=== PATIENT | female | born 1980 | race Caucasian/White ===

== ENCOUNTER 2017-02-14 07:57 | Emergency (ER) | payer BC, OTHER ==
[~2017-02-14] VITALS: Ht 157.5 cm; Wt 66.8 kg
[2017-02-14 07:58] VITALS: Ht 157.5 cm; Wt 66.8 kg
[2017-02-14] MEDS ORDERED: IBUPROFEN 600 MG TAB PO ONE (08:30)
[2017-02-14 08:33] LABS: URINE BLOOD (Dip) POC Negative (NEGATIVE)
--- NOTE | 2017-02-14 08:59 | ERD ---
ER Documentation Chief Complaint Date/Time DATE: 02/14/17 TIME: 08:55 Chief Complaint BACK PAIN X 2 WEEKS HPI 36 yo female otherwise healthy comes in with diffuse, achy, mild to moderate lower back pain for 2 weeks. She states that she has tried taking ibuprofen that seems to help. She states that the pain has been the same, not improving or getting worse. It is worse when she is sitting however, or after she goes to work. She denies any history of heavy lifting, or trauma. She denies saddle anesthesia loss of bowel bladder function. No fevers, chills, chest pain shortness of breath. ROS All systems reviewed and are negative except as per history of present illness. Medications Home Meds Active Scripts Naproxen* (Naprosyn*) 500 Mg Tablet, 500 MG PO BID Y for PAIN AND/OR INFLAMMATION, #30 TAB Prov:LORETTA HARDIN PA-C 02/14/17 Allergies Allergies: Coded Allergies: No Known Allergy (Verified , 07/07/12) PMhx/Soc History of Surgery: Yes ( X2) Anesthesia Reaction: No Hx Neurological Disorder: No Hx Respiratory Disorders: No Hx Cardiac Disorders: No Hx Psychiatric Problems: No Hx Miscellaneous Medical Probl: No Hx Alcohol Use: No Hx Substance Use: No Hx Tobacco Use: No Physical Exam Vitals Vital Signs Date Time Temp Pulse Resp B/P Pulse Ox O2 Delivery O2 Flow Rate FiO2 02/14/17 07:58 98.9 82 18 122/58 99 Physical Exam General: Well-developed, well-nourished. The patient appears in no acute distress. HEENT: Head is normocephalic, atraumatic. No scleral icterus. Neck: Supple. Nontender. Lungs: Clear to auscultation. Normal air movement. Heart: Regular rate and rhythm. S1 and S2 are normal. No murmurs, gallops, or rubs. Abdomen: Soft, nontender, nondistended. Bowel sounds are normoactive. Back: No rashes, no neck stiffness, strength lower extremities 5 out of 5 bilaterally, no midline tenderness. No CVA tenderness. diffuse low back tenderness with palpation laterally Extremities: No clubbing or cyanosis. Normal pulses. Moving extremities x 4. No weakness. Neurologic: Alert and oriented 3. No focal deficits. Skin: Normal turgor. No rash or lesions. Results 24 hrs Laboratory Tests Test 8/9/17 08:40 Bedside Urine pH (LAB) 5.5 Bedside Urine Protein (LAB) Negative Bedside Urine Glucose (UA) Negative Bedside Urine Ketones (LAB) Negative Bedside Urine Blood Negative Bedside Urine Nitrite (LAB) Negative Bedside Urine Leukocyte Esterase (L Negative Current Medications Medications (Trade) Dose Ordered Sig/Adi Route PRN Reason Start Time Stop Time Status Last Admin Dose Admin Ibuprofen (Motrin) 600 mg ONCE ONCE PO 02/14/17 08:30 02/14/17 08:31 DC 02/14/17 08:35 Radiology Main Line: [phone] DIAGNOSTIC IMAGING REPORT Patient: BLAKE ZARCO : 1980 Age: 36 Sex: F MR #: [id number] DOS: 02/14/17 0810 Ordering MD: LORETTA HARDIN PA-C Location: [facility] Room/Bed: PROCEDURE: XR Lumbar Spine. CLINICAL INDICATION: back pain TECHNIQUE: AP, lateral and cone-down lateral view of the lumbar spine were obtained. COMPARISON: No prior studies are available for comparison. FINDINGS: There is normal vertebral mineralization and alignment. No fracture or subluxation is seen. The disc spaces are normal in appearance. The posterior elements are unremarkable. The soft tissues appear normal. RPTAT: AA IMPRESSION: Unremarkable lumbar spine. .Jono Jaeger MD, MD Date Time Electronically viewed and signed by .Jono Jaeger MD, MD on 02/14/2017 09: 41 Procedures/MDM Medical decision makin-year-old female presents with low back pain for 2 weeks, consistent with a lumbar strain. Patient does not have any midline pain, an x-rays are normal. Urine was negative for infection. No signs of pyelonephritis, kidney stones. No evidence of fracture or subluxation, cauda equina or epidural abscess. Patient's symptoms appear to be worse after she is working, and she has tenderness laterally in the muscular regions. Patient is well appearing, stable for discharge. Departure Diagnosis: Primary Impression: Back pain Condition: Good LORETTA HARDIN PA-C Feb 14, 2017 08:58
--- NOTE | 2017-02-14 09:41 | RADRPT ---
PROCEDURE: XR Lumbar Spine. CLINICAL INDICATION: back pain TECHNIQUE: AP, lateral and cone-down lateral view of the lumbar spine were obtained. COMPARISON: No prior studies are available for comparison. FINDINGS: There is normal vertebral mineralization and alignment. No fracture or subluxation is seen. The disc spaces are normal in appearance. The posterior elements are unremarkable. The soft tissues appear normal. RPTAT: AA IMPRESSION: Unremarkable lumbar spine. .Jono Jaeger MD, MD Date Time Electronically viewed and signed by .Jono Jaeger MD, on 02/14/2017 09:41 .S/
[2017-02-14] MEDS ORDERED: NAPR-260 PO (09:49)
== END 2017-02-14 09:58 | disposition home or self-care (01) ==
LOC: FTE 07:57
DX: M54.5 Low back pain (principal)
CPT/HCPCS: 72100; 81003; 99283; Z7610

== ENCOUNTER 2017-07-21 18:53 | Emergency (ER) | END 2017-07-21 19:05 | disposition left against medical advice (07) ==

== ENCOUNTER 2017-11-04 15:36 | Emergency (ER) | END 2017-11-04 17:07 | disposition home or self-care (01) ==

== ENCOUNTER 2017-12-05 16:26 | Emergency (ER) | END 2017-12-05 19:30 | disposition home or self-care (01) ==

== ENCOUNTER 2018-01-20 00:38 | Emergency (ER) | END 2018-01-20 02:14 | disposition left against medical advice (07) ==